=== PATIENT | male | born 1965 | race Caucasian/White ===

== ENCOUNTER 2017-03-09 05:23 | Emergency (ER) | payer BC ==
[~2017-03-09] VITALS: Ht 172.7 cm; Wt 74.8 kg
[2017-03-09] MEDS ORDERED: TRAMADOL HCL50 M1 PO (05:35)
[2017-03-09] MEDS ORDERED: FLEXERIL10 MG PO (05:35)
[2017-03-09] MEDS ORDERED: VOLTAREN75 MG PO (05:36)
== END 2017-03-09 06:14 | disposition home or self-care (01) ==
LOC: SED 05:23
DX: M54.32 Sciatica, left side (principal); Z79.899 Other long term (current) drug therapy
CPT/HCPCS: 96372; 99283; J2930